=== PATIENT | female | born 2000 | race Caucasian/White ===

== ENCOUNTER 2022-11-19 13:23 | Emergency (ER) | payer SELFPAY ==
[2022-11-19] MEDS ORDERED: IPRATROPIUM BROM 0.5MG/2.5ML ONE ×2 (13:46→14:55)
[2022-11-19] MEDS ORDERED: ALBUTEROL 2.5 MG/3 ML NEB SOL ONE ×2 (13:46→14:54)
[2022-11-19 14:08] LABS: Absolute Lymphocytes (CBC) 0.6 K/uL (0.7-4.9); Hematocrit 41.7 % (36.0-45.0); Lymphocytes % 6.4 % (15.3-44.8); MCV 90.6 fL (80-100); MPV 8.1 fL (7.6-11.3)
--- NOTE | 2022-11-19 14:09 | RAD REPORT ---
EXAM DESCRIPTION: RAD - Chest Single View - 11/19/2022 1:51 pm CLINICAL HISTORY: DYSPNEA Chest pain. COMPARISON: No comparisons FINDINGS: Portable technique limits examination quality. The lungs are grossly clear. The heart is normal in size. No displaced fractures. IMPRESSION: No acute intrathoracic process suspected.
[2022-11-19 14:47] LABS: Specific Gravity < 1.005 (1.005-1.030)
[2022-11-19] MEDS ORDERED: KETOROLAC 30 MG/ML INJ ONE (14:54)
[2022-11-19] MEDS ORDERED: NA CHLORIDE 0.9% 1,000 ML ONE (14:55)
[2022-11-19 16:05] LABS: Potassium 3.9 mEq/L (3.5-5.1); Sodium Level 137 mEq/L (136-145)
[2022-11-19 16:08] LABS: Albumin 3.7 g/dL (3.4-5.0); BUN Blood Urea Nitrogen 11 mg/dL (7-18); Bicarbonate 25 mEq/L (21-32); Glucose Level 136 mg/dL (74-106)
[2022-11-19 16:11] LABS: ALT/SGPT 35 U/L (13-56); AST/SGOT 17 U/L (15-37); Glomerular Filtration Rate 115 ml/min (=/>90)
[2022-11-19 16:12] LABS: Bilirubin Total 0.3 mg/dL (0.2-1.0); Protein, Total 7.3 g/dL (6.4-8.2)
[2022-11-19 16:14] LABS: Alkaline Phosphatase 39 U/L (45-117)
[2022-11-19 16:19] LABS: Troponin High Sensitivity < 3.0 pg/mL (<58.9)
--- NOTE | 2022-11-19 16:39 | EDPHYS ---
Physician Documentation [facility] Name: Philomena Ceballos Age: 22 yrs Sex: Female : 2000 Arrival Date: 11/19/2022 Time: 13:23 Bed 18 Private MD: ED Physician Shivam Shaikh HPI: 11/19 17:28 This 22 yrs old Female presents to ER via EMS with complaints of Asthma Exacerbation. rt 17:28 Patient with history of asthma presents to the ED with asthma exacerbation. Patient rt states that she has had shortness of breath for the past 3 days, seen 3 days ago and in the ER, prescribed prednisone 50 mg and has taken 3 doses of that. She states that her albuterol MDI has not adequately controlled her symptoms. She does report a chest tightness. She denies other acute complaints at this time. Symptoms are moderate in severity, no other aggravating or alleviating factors.. Historical: - Allergies: 13:43 PENICILLINS; kc6 13:43 Amoxicillin; kc6 - PMHx: 13:43 Asthma; kc6 - PSHx: 13:43 None; kc6 - Immunization history:: Client reports receiving the 2nd dose of the Covid vaccine, Flu vaccine is up to date. - Social history:: Smoking status: Patient denies any tobacco usage or history of. - Family history:: not pertinent. ROS: 17:28 Constitutional: Negative for fever, chills, and weight loss, Abdomen/GI: Negative for rt abdominal pain, nausea, vomiting, diarrhea, and constipation, MS/Extremity: Negative for injury and deformity, Skin: Negative for injury, rash, and discoloration, Neuro: Negative for headache, weakness, numbness, tingling, and seizure, Psych: Negative for depression, anxiety, suicide ideation, homicidal ideation, and hallucinations. 17:28 Cardiovascular: Positive for chest pain, Negative for edema. 17:28 Respiratory: Positive for cough, shortness of breath, wheezing. Exam: 17:28 Constitutional: This is a well developed, well nourished patient who is awake, alert, rt and in no acute distress. Head/Face: Normocephalic, atraumatic. Chest/axilla: Normal chest wall appearance and motion. Nontender with no deformity. No lesions are appreciated. Cardiovascular: Regular rate and rhythm with a normal S1 and S2. No gallops, murmurs, or rubs. Normal PMI, no JVD. No pulse deficits. Abdomen/GI: Soft, non-tender, with normal bowel sounds. No distension or tympany. No guarding or rebound. No evidence of tenderness throughout. Skin: Warm, dry with normal turgor. Normal color with no rashes, no lesions, and no evidence of cellulitis. MS/ Extremity: Pulses equal, no cyanosis. Neurovascular intact. Full, normal range of motion. Neuro: Awake and alert, GCS 15, oriented to person, place, time, and situation. Cranial nerves II-XII grossly intact. Motor strength 5/5 in all extremities. Sensory grossly intact. Cerebellar exam normal. Normal gait. Psych: Awake, alert, with orientation to person, place and time. Behavior, mood, and affect are within normal limits. 17:28 Respiratory: Wheezes and diminished breath sounds heard on all lung gupta, mild respiratory distress. Vital Signs: 13:41 BP 119 / 84; Pulse 112; Resp 20 S; Pulse Ox 96% on R/A; Weight 61.23 kg (R); Height 4 kc6 ft. 11 in. (R); Pain 6/10; 15:11 BP 129 / 53; Pulse 104; Resp 20 S; Pulse Ox 100% on R/A; kc6 16:08 BP 103 / 64; Pulse 91; Resp 16 S; Pulse Ox 99% on R/A; kc6 13:41 Body Mass Index 27.27 (61.23 kg, 149.86 cm) kc6 13:41 Pain Scale: Adult kc6 MDM: 13:31 Patient medically screened. rt 17:30 Differential diagnosis: Asthma, pneumonia, pneumothorax. Data reviewed: vital signs, rt nurses notes, lab test result(s), EKG, radiologic studies. Consideration of Admission/Observation Escalation of care including admission/observation considered. I considered the following discharge prescriptions or medication management in the emergency department Medications were administered in the Emergency Department. See MAR. Independent interpretation of the following test(s) in the Emergency Department X-Ray: My interpretation is No consolidation seen my interpretation of the x-ray images. Test considered but Not performed: CT: Symptoms clearly due to bronchospasm, do not suspect pulmonary embolism, CT angiogram not indicated. Care significantly affected by the following chronic conditions: Asthma. Response to treatment: the patient's symptoms have markedly improved after treatment. 11/19 13:31 Order name: CBC with Diff rt 11/19 13:31 Order name: CMP; Complete Time: 16:21 rt 11/19 13:31 Order name: Troponin High Sensitivity; Complete Time: 16:21 rt 11/19 14:07 Order name: PREGU; Complete Time: 16:08 em1 11/19 13:31 Order name: Chest Single View XRAY; Complete Time: 14:22 rt 11/19 13:31 Order name: EKG; Complete Time: 13:32 rt 11/19 13:31 Order name: EKG - Nurse/Tech; Complete Time: 13:58 rt 11/19 14:38 Order name: Labs - recollect needed: please recollect green top; Complete Time: 15:01 em1 11/19 15:24 Order name: Labs - recollect needed: labs hemolyzed again; Complete Time: 15:42 em1 Administered Medications: 13:41 Drug: DuoNeb Nebulize (3:1) (2.5 mg - 0.5 mg) 3 ml Route: Nebulizer; kc6 15:12 Follow up: Response: No adverse reaction; Wheezing unchanged kc6 15:01 Drug: DuoNeb Nebulize (3:1) (2.5 mg - 0.5 mg) 3 ml Route: Nebulizer; kc6 16:47 Follow up: Response: No adverse reaction; Wheezing diminished kc6 15:01 Drug: Ketorolac IVP 15 mg Route: IVP; Site: left antecubital; kc6 16:47 Follow up: Response: No adverse reaction; Pain is decreased kc6 15:01 Drug: NS 0.9% IV 1000 ml Route: IV; Rate: 1 bolus; Site: left antecubital; kc6 16:48 Follow up: Response: No adverse reaction; IV Status: Completed infusion; IV Intake: kc6 1000ml Disposition Summary: 11/19/22 16:38 Discharge Ordered Location: Home rt Problem: an acute exacerbation rt Symptoms: have improved rt Condition: Stable rt Diagnosis - Unspecified asthma with (acute) exacerbation rt Followup: rt - With: Private Physician - When: 2 - 3 days - Reason: Discharge Instructions: - Discharge Summary Sheet rt - Asthma, Adult rt Forms: - Medication Reconciliation Form rt - Thank You Letter rt - Antibiotic Education rt - Prescription Opioid Use rt Prescriptions: - albuterol sulfate 2.5 mg /3 mL (0.083 %) Inhalation Solution for Nebulization - nebulize 3 milliliter by INHALATION route every 6 hours as needed for rt bronchospasm; 90 milliliter; Refills: 0, Product Selection Permitted Signatures: Dispatcher [employer] EDRick Altamirano em1 Florecita Yin RN RN kc6 Shivam Shaikh MD MD rt Corrections: (The following items were deleted from the chart) 14:11 13:32 TEST, SERUM+[id number].LAB.BRZ ordered. EDMS EDMS
--- NOTE | 2022-11-19 16:39 | ER ---
Nurse's Notes [facility] Name: Philomena Ceballos Age: 22 yrs Sex: Female : 2000 Arrival Date: 11/19/2022 Time: 13:23 Bed 18 Private MD: Diagnosis: Unspecified asthma with (acute) exacerbation Presentation: 11/19 13:41 Chief complaint: EMS states: pt has been having issues with her asthma since Tuesday. kc6 stated pt was here on Tuesday night and sent home with a steroid and breathing treatment. Coronavirus screen: At this time, the client does not indicate any symptoms associated with coronavirus-19. Ebola Screen: No symptoms or risks identified at this time. Initial Sepsis Screen: Does the patient meet any 2 criteria? No. Patient's initial sepsis screen is negative. Does the patient have a suspected source of infection? No. Patient's initial sepsis screen is negative. Risk Assessment: Do you want to hurt yourself or someone else? Patient reports no desire to harm self or others. Onset of symptoms was November 19, 2022. 13:41 Method Of Arrival: EMS: [facility] 13:41 Acuity: AUGUST[place] 3 kc6 Triage Assessment: 13:43 General: Appears in no apparent distress. comfortable, Behavior is calm, cooperative, kc6 appropriate for age. Pain: Complains of pain in chest Pain does not radiate. Pain currently is 6 out of 10 on a pain scale. Quality of pain is described as heavy, pressure, Is continuous. EENT: No signs and/or symptoms were reported regarding the EENT system. Neuro: Cottrell Agitation-Sedation Scale (RASS): 0 - Alert and Calm Level of Consciousness is awake, alert, obeys commands, Oriented to person, place, time, situation, Appropriate for age. Cardiovascular: Reports chest pain, Heart tones S1 S2 present Capillary refill < 3 seconds Rhythm is sinus tachycardia. Respiratory: Airway is patent Trachea midline Respiratory effort is even, labored, pt coughing Respiratory pattern is symmetrical, tachypnea. GI: No signs and/or symptoms were reported involving the gastrointestinal system. : No signs and/or symptoms were reported regarding the genitourinary system. Derm: No signs and/or symptoms reported regarding the dermatologic system. Skin is intact, Skin is pink, warm \T\ dry. Musculoskeletal: No signs and/or symptoms reported regarding the musculoskeletal system. Circulation, motion, and sensation intact. Capillary refill < 3 seconds, Range of motion: intact in all extremities. Historical: - Allergies: 13:43 PENICILLINS; kc6 13:43 Amoxicillin; kc6 - PMHx: 13:43 Asthma; kc6 - PSHx: 13:43 None; kc6 - Immunization history:: Client reports receiving the 2nd dose of the Covid vaccine, Flu vaccine is up to date. - Social history:: Smoking status: Patient denies any tobacco usage or history of. - Family history:: not pertinent. Screenin:45 [facility] ED Fall Risk Assessment (Adult) History of falling in the last 3 months, kc6 including since admission No falls in past 3 months (0 pts) Confusion or Disorientation No (0 pts) Intoxicated or Sedated No (0 pts) Impaired Gait No (0 pts) Mobility Assist Device Used No (0 pt) Altered Elimination No (0 pt) Score/Fall Risk Level 0 - 2 = Low Risk Oriented to surroundings, Maintained a safe environment, Educated pt \T\ family on fall prevention, incl call for assistance when getting out of bed, Assessed \T\ reinforced patient's understanding of fall precautions, Hourly rounding (assess needs \T\ fall precautionary measures) done. Abuse screen: Denies threats or abuse. Denies injuries from another. Nutritional screening: No deficits noted. Tuberculosis screening: No symptoms or risk factors identified. Assessment: 13:44 Reassessment: please see triage assessment. kc6 14:53 Reassessment: Patient appears in no apparent distress at this time. No changes from 6 previously documented assessment. Patient and/or family updated on plan of care and expected duration. Pain level reassessed. Patient is alert, oriented x 3, equal unlabored respirations, skin warm/dry/pink. 15:11 Reassessment: Patient appears in no apparent distress at this time. No changes from kc6 previously documented assessment. Patient and/or family updated on plan of care and expected duration. Pain level reassessed. Patient is alert, oriented x 3, equal unlabored respirations, skin warm/dry/pink. 16:08 Reassessment: Patient appears in no apparent distress at this time. No changes from 6 previously documented assessment. Patient and/or family updated on plan of care and expected duration. Pain level reassessed. Patient is alert, oriented x 3, equal unlabored respirations, skin warm/dry/pink. Vital Signs: 13:41 BP 119 / 84; Pulse 112; Resp 20 S; Pulse Ox 96% on R/A; Weight 61.23 kg (R); Height 4 kc6 ft. 11 in. (R); Pain 6/10; 15:11 BP 129 / 53; Pulse 104; Resp 20 S; Pulse Ox 100% on R/A; kc6 16:08 BP 103 / 64; Pulse 91; Resp 16 S; Pulse Ox 99% on R/A; kc6 13:41 Body Mass Index 27.27 (61.23 kg, 149.86 cm) kc6 13:41 Pain Scale: Adult kc6 ED Course: 13:27 Patient arrived in ED. em1 13:28 Florecita Yin, CHARLA is Primary Nurse. kc6 13:31 Shivam Shaikh MD is Attending Physician. rt 13:43 Triage completed. kc6 13:43 Arm band placed on. kc6 13:45 Patient has correct armband on for positive identification. Bed in low position. Call kc6 light in reach. Side rails up X 1. Adult w/ patient. 13:52 Chest Single View XRAY In Process Unspecified. EDMS 13:58 Inserted saline lock: 22 gauge in left antecubital area, using aseptic technique. Blood kc6 collected. 16:47 No provider procedures requiring assistance completed. IV discontinued, intact, kc6 bleeding controlled, No redness/swelling at site. Pressure dressing applied. Administered Medications: 13:41 Drug: DuoNeb Nebulize (3:1) (2.5 mg - 0.5 mg) 3 ml Route: Nebulizer; kc6 15:12 Follow up: Response: No adverse reaction; Wheezing unchanged kc6 15:01 Drug: DuoNeb Nebulize (3:1) (2.5 mg - 0.5 mg) 3 ml Route: Nebulizer; kc6 16:47 Follow up: Response: No adverse reaction; Wheezing diminished kc6 15:01 Drug: Ketorolac IVP 15 mg Route: IVP; Site: left antecubital; kc6 16:47 Follow up: Response: No adverse reaction; Pain is decreased kc6 15:01 Drug: NS 0.9% IV 1000 ml Route: IV; Rate: 1 bolus; Site: left antecubital; kc6 16:48 Follow up: Response: No adverse reaction; IV Status: Completed infusion; IV Intake: kc6 1000ml Medication: 16:47 VIS not applicable for this client. kc6 Intake: 16:48 IV: 1000ml; Total: 1000ml. kc6 Outcome: 16:38 Discharge ordered by . rt 16:47 Discharged to home ambulatory. kc6 16:47 Condition: improved 16:47 Discharge instructions given to patient, Instructed on discharge instructions, follow up and referral plans. medication usage, Demonstrated understanding of instructions, follow-up care, medications, Prescriptions given X 1. 16:49 Patient left the ED. kc6 Signatures: Dispatcher [employer] EDRick Altamirano em1 Florecita Yin, CHARLA RN kc6 Shivam hSaikh MD MD rt
[2022-11-19 17:14] VITALS: BP 103/64; O2SAT 99
[2022-11-19 20:14] LABS: Platelet Estimate ADEQ; White Blood Cell Scan OK (OK)
[2022-11-19 20:15] LABS: Blood Morphology Comment NOT SEEN (NOT SEEN)
--- NOTE | 2022-11-21 14:26 | EKG ---
Test Date: 2022-11-19 Test Time: 14:03:22 Secretary Bookkeeper: GABI MEASUREMENT RESULTS: Intervals: Rate: 114 [place]: QRSD: 66 QT: 272 QTc: 374 [place]: P: 187 [place]: QRS: 48 T: 52 INTERPRETIVE STATEMENTS: Normal sinus rhythm normal ECG Electronically Signed On 11-21-22 14:23:51 CDT by Maxim Langley
--- NOTE | 2022-11-22 17:17 | EKG ---
Test Date: 2022-11-19 Test Time: 14:07:17 Sterile Preparation Technician: GABI MEASUREMENT RESULTS: Intervals: Rate: 105 MI: 136 QRSD: 70 QT: 304 QTc: 401 [place]: P: 75 MI: 136 QRS: 52 T: 55 INTERPRETIVE STATEMENTS: Sinus tachycardia Possible Left atrial enlargement Borderline ECG Compared to ECG 11/19/2022 14:03:22 Sinus rhythm no longer present Electronically Signed On 11-22-22 17:12:18 CDT by Maxim Langley
== END 2022-11-19 16:49 | disposition home or self-care (01) ==
LOC: ER 13:23
DX: J45.901 Unspecified asthma with (acute) exacerbation (principal)
CPT/HCPCS: 36415; 71045; 80053; 81025; 84484; 85025; 93005; 94640; 96361; 96374; 99285; J7030; J7613; J7644